=== PATIENT | female | born 1975 | race Caucasian/White ===

== ENCOUNTER 2017-06-08 15:00 | Day surgery (SDC) | payer OTHER ==
[~2017-06-08] VITALS: Ht 165.1 cm; Wt 68.0 kg
[~2017-06-08 15:00] MED LIST: DICLOFENAC SODI50 MG PO; PERCOCET 5-3251 EACH PO; PROTONIX40 MG PO; ZOFRAN ODT4 MG PO
== END 2017-06-08 19:00 | disposition home or self-care (01) ==
LOC: CIR.AMB 15:00
DX: K80.10 Calculus of gallbladder with chronic cholecystitis without obstruction (principal); R10.2 Pelvic and perineal pain

== ENCOUNTER 2021-03-05 09:13 | Outpatient (CLI) | payer OTHER | END 2021-03-05 09:18 | disposition home or self-care (01) | LOC: PPH VACUNA 09:13 | PROVIDERS: ATTEND Emergency Medicine Pediatric Emergency Medicine | DX: Z23 Encounter for immunization (principal) ==